=== PATIENT | male | born 2000 | race Caucasian/White ===

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

== ENCOUNTER 2019-01-11 21:58 | Emergency (ER) | payer SELFPAY ==
[~2019-01-11] VITALS: Ht 167.6 cm; Wt 65.4 kg
[~2019-01-11 21:58] MED LIST changes: +GUAI120S25 PO; -GUAI120S26 PO; +NAPR-985 PO
[2019-01-11 22:06] VITALS: BP 158/82; PULSE 82; RESP 17; Ht 167.6 cm; Wt 65.4 kg
== END 2019-01-12 00:20 | disposition left against medical advice (07) ==
LOC: FTE 21:58
DX: Z53.21 Procedure and treatment not carried out due to patient leaving prior to being seen by health care provider (principal)